=== PATIENT | female | born 1935 | race Caucasian/White ===

== ENCOUNTER 2019-03-28 07:39 | Emergency (ER) | payer OTHER ==
[~2019-03-28] VITALS: Ht 160 cm; Wt 96.1 kg
[~2019-03-28 07:39] MED LIST: ACET500C4 PO; AMLO5TAB9 PO; CHOL20002 PO; DEXL60CA3 PO; DOCU250C91 PO; FURO20 PO; GLIP5 PO; INSLAN SQ; INSU100C6 SQ; OMEP20 PO; PIOG30TA10 PO; POTA15TA11 PO; REPA1 PO; SIMV-260 PO
[2019-03-28] MEDS ORDERED: METO25 PO (07:58)
[2019-03-28] MEDS ORDERED: SIMV-260 PO (07:58)
[2019-03-28] MEDS ORDERED: CYAN500T65 PO (07:58)
[2019-03-28] MEDS ORDERED: BUME1TAB34 PO (07:58)
[2019-03-28] MEDS ORDERED: INSLAN SQ (07:58)
[2019-03-28] MEDS ORDERED: ALBU8HFA IH (07:58)
[2019-03-28] MEDS ORDERED: DOCU250C91 PO (07:58)
[2019-03-28] MEDS ORDERED: SITA100 PO (07:58)
[2019-03-28] MEDS ORDERED: LEVO25TA9 PO (07:58)
[2019-03-28] MEDS ORDERED: ASPI-556 PO (07:58)
[2019-03-28] MEDS ORDERED: LACT30L PO (07:58)
[2019-03-28] MEDS ORDERED: FAMO20 PO (07:58)
[2019-03-28] MEDS ORDERED: RIVA15T PO (07:58)
[2019-03-28 08:45] LABS: GLUCOSE,POINT OF CARE 208 MG/DL (70-110)
[2019-03-28] MEDS ORDERED: AZITHROMYCIN 500 MG/NS 250 ML IV ONE (09:00)
[2019-03-28] MEDS ORDERED: IPRATROPIUM BROMIDE 0.5 MG/2.5 ML NEB SOLUTION NEB ONE ×2 (09:00→09:15)
[2019-03-28] MEDS ORDERED: CefTRIAXone 1 GM/DEXTROSE 50 ML IV ONE (09:00)
[2019-03-28] MEDS ORDERED: ALBUTEROL SULFATE 5 MG/ML 20 ML NEB SOLN [BULK] NEB ONE (09:00)
[2019-03-28] MEDS ORDERED: ALBUTEROL SULFATE 2.5 MG/0.5 ML NEB SOLUTION NEB ONE (09:15)
[2019-03-28 09:58] LABS: HEMATOCRIT 32.8 % (36-46); HEMOGLOBIN 10.2 g/dL (12.0-16.0); MEAN CORPUSCULAR VOLUME 90 fL (80-100); PLATELET COUNT (AUTO) 343 K/uL (150-450); RED BLOOD CELL COUNT(AUTO) 3.63 MIL/uL (4.00-5.20); RED CELL DISTRIBUTION WIDTH 15.7 % (11.5-14.5)
[2019-03-28 10:00] LABS: CALCIUM, TOTAL 9.5 mg/dL (8.8-10.5); CREATININE 1.89 mg/dL (0.60-1.30); POTASSIUM 4.3 mmol/L (3.5-5.1)
[2019-03-28 10:08] LABS: ALBUMIN 2.2 g/dL (3.4-5.0); BILIRUBIN,TOTAL 0.3 mg/dL (0.1-1.0); TOTAL PROTEIN, SERUM 7.4 g/dL (6.4-8.2)
[2019-03-28 10:18] LABS: BAND NEUTROPHILS % (MANUAL) 9 % (0-5); EOSINOPHILS % (MANUAL) 1 % (1-6); LYMPHOCYTES % (MANUAL) 12 % (22-44); MONOCYTES % (MANUAL) 8 % (2-9); MYELOCYTES % 1 % (0-0); SEGMENTED NEUTROPHILS % 69 % (40-70)
[2019-03-28 12:01] VITALS: BP 122/62
== END 2019-03-28 14:00 | disposition short-term general hospital (02) ==
LOC: EMS 07:40
DX: J18.9 Pneumonia, unspecified organism (principal); J96.10 Chronic respiratory failure, unspecified whether with hypoxia or hypercapnia; I10 Essential (primary) hypertension; E11.9 Type 2 diabetes mellitus without complications; J45.909 Unspecified asthma, uncomplicated; Z79.4 Long term (current) use of insulin; Z79.899 Other long term (current) drug therapy
CPT/HCPCS: 36415; 71045; 80053; 82962; 85025; 94640; 96365; 96367; 99285; J0456; J0696